=== PATIENT | male | born 1970 | race Caucasian/White ===

== ENCOUNTER → 2016-05-07 | Outpatient (CLI) | payer OTHER ==
[~2016-05-07] MED LIST: FLEXERIL10 MG PO; HYDROCODONE BIT1 T39 PO; HYDROCODONE-APA1 TA2 PO; MOBIC15 MG PO; NAPROSYN 500MG500 MG PO; NEURONTIN 300M300 MG PO; NORCO1 TAB PO; ROBAXIN-750750 MG PO
--- NOTE | 2016-05-07 11:58 | RADIOLOGY REPORT PS360 ---
CHEST(2 VIEWS-NOT PORTABLE) HISTORY: ACUTE BRONCHITIS ORDERING PHYSICIAN: Jarett Rosen PATIENT AGE: 45 years COMPARISON: 12/06/2015 FINDINGS: The cardiomediastinal silhouette and pulmonary vascularity are within normal limits. There are increased markings within the lingula consistent with patchy infiltrate. The remaining lungs are clear. No obvious effusion.. No acute bony abnormalities. IMPRESSION: Patchy pneumonic infiltrate within the lingula
== END ==
LOC: RAD 09:04
DX: R53.1 Weakness (principal); E53.8 Deficiency of other specified B group vitamins; J02.9 Acute pharyngitis, unspecified

== ENCOUNTER → 2016-05-31 | Outpatient (CLI) | payer OTHER | LOC: LAB 14:48 | DX: R94.6 Abnormal results of thyroid function studies (principal); R79.89 Other specified abnormal findings of blood chemistry ==